=== PATIENT | female | born 1985 | race Caucasian/White ===

== ENCOUNTER 2017-06-27 19:32 | Emergency (ER) | payer MEDICAID ==
[~2017-06-27] VITALS: Ht 175.3 cm; Wt 72.6 kg
[2017-06-27 19:38] VITALS: BP 117/75
--- NOTE | 2017-06-27 19:51 | NUR ---
DR CONWAY AT BEDSIDE TO EVAL.
[2017-06-27] MEDS ORDERED: ONDANSETRON 4 MG TAB.RAPDIS PO ONE (20:00)
[2017-06-27] MEDS ORDERED: ONDANSETRON 4 MG TAB.RAPDIS ONE (20:01)
== END 2017-06-27 20:07 | disposition home or self-care (01) ==
LOC: ER 19:35
DX: R11.2 Nausea with vomiting, unspecified (principal); R19.7 Diarrhea, unspecified; R10.13 Epigastric pain
CPT/HCPCS: A4606; Q0162; Z7610